=== PATIENT | female | born 2005 | race Caucasian/White ===

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

== ENCOUNTER 2023-11-09 08:00 | Outpatient (CLI) | payer OTHER ==
[2023-11-09 12:10] LABS: BASOPHILS # (AUTO) 0.1 10^3/uL (0.0-0.1); BASOPHILS % (AUTO) 0.9 %; EOSINOPHILS # (AUTO) 0.1 10^3/uL (0.0-0.7); EOSINOPHILS % (AUTO) 0.7 %; HCT - HEMATOCRIT 44.3 % (37.0-47.0); HGB - HEMOGLOBIN 14.4 g/dL (12.0-16.0); LYMPHOCYTES # (AUTO) 1.7 10^3/uL (1.5-3.5); LYMPHOCYTES % (AUTO) 24.3 %; MEAN CORPUSCULAR HEMOGLOBIN 29.4 pg (27.0-31.0); MEAN CORPUSCULAR HGB CONC 32.5 g/dL (32.0-36.0); MEAN CORPUSCULAR VOLUME 90.4 fL (81.0-99.0); MEAN PLATELET VOLUME 9.3 fL (7.9-10.8); MONOCYTES # (AUTO) 0.5 10^3/uL (0.0-1.0); MONOCYTES % (AUTO) 7.3 %; NEUTROPHILS # (AUTO) 4.7 10^3/uL (1.5-6.6); NEUTROPHILS % (AUTO) 66.5 %; PLT - PLATELET COUNT 373 10^3/uL (130-450); RED CELL DISTRIBUTION WIDTH 12.2 % (12.0-15.0)
[2023-11-09 12:46] LABS: CREATININE 0.8 mg/dL (0.6-1.3); POTASSIUM 3.6 mmol/L (3.5-4.5)
[2023-11-09 12:59] LABS: THYROID STIMULATING HORMONE 1.7 uIU/mL (0.34-5.60)
== END 2023-11-09 08:15 | disposition home or self-care (01) ==
LOC: LAB.N 08:00
PROVIDERS: ATTEND Physician Assistant Medical
DX: R55 Syncope and collapse (principal)
CPT/HCPCS: 36415; 80048; 84443; 85025

== ENCOUNTER 2023-11-10 09:52 | Emergency (ER) | payer OTHER ==
[2023-11-10 10:11] VITALS: O2SAT 100
[2023-11-10] MEDS ORDERED: iohexoL-300 100 ML VIAL ONE (10:39)
[2023-11-10] MEDS: SODIUM CHLORIDE 0.9% 1,000 ML IV STA (10:48)
--- NOTE | 2023-11-10 10:55 | ED Physician Documentation ---
History of Present Illness - Stated complaint Stated Complaint: D/N/V - Chief complaint Chief Complaint: Abd Pain - History obtained from History obtained from: Patient - Additonal information Additional information: The patient comes to the emergency department with chief complaint of of episodes of lightheadedness and nausea for the last month. She states it happens on and off and is usually at a frequency of 2-3 times a week. The patient states it is very random. The first time it happened, she was just sitting on the couch with her fianc when she suddenly began to feel a simultaneous lightheaded and spinning sensation. The patient states that she ended up being helped to the bathroom by her fianc and vomiting in the toilet. She states that she has had a few episodes of syncope since with similar symptoms preceding. The patient denies any chest pain, shortness of breath, or palpitations associated with this. She has never been prone to fainting previously and denies any cardiac rhythm issues. She has not been noticing any black or bloody stools. No extra heavy periods. She is on control. The patient denies any edema in her lower extremities. No calf pain. No history of DVT/PE. The patient was seen yesterday in the walk-in clinic and was worked up with laboratory studies which were unremarkable, including metabolic panel, CBC, and test. The patient had another episode this morning and states [place]. PD PAST MEDICAL HISTORY - Past Medical History Past Medical History: No - Past Surgical History Past Surgical History: No - Present Medications Home Medications: Ambulatory Orders Medication Instructions Recorded Confirmed Meclizine HCl [Motion Sickness] 50 mg PO Q6H PRN #20 tab 11/10/23 Non Formulary 1 each PO QD 11/10/23 11/10/23 Ondansetron Odt [Zofran] 4 mg TL Q6H PRN #14 tablet 11/10/23 - Allergies Allergies/Adverse Reactions: Allergies Allergy/AdvReac Type Severity Reaction Status Date / Time No Known Drug Allergies Allergy Verified 11/10/23 10:02 - Social History Does the pt smoke?: No Smoking Status: Never smoker Does the pt drink ETOH?: No Does the pt have substance abuse?: No PD ED PE NORMAL - Vitals Vital signs reviewed: Yes - General General: Alert and oriented X 3, No acute distress, Well developed/nourished - HEENT HEENT: Atraumatic, EOMI, Moist mucous membranes - Neck Neck: Supple, no meningeal sign - Cardiac Cardiac: RRR, No murmur - Respiratory Respiratory: No respiratory distress, Clear bilaterally - Abdomen Abdomen: Soft, Non tender, Non distended - Derm Derm: Normal color, Warm and dry, No rash - Extremities Extremities: No deformity, No edema, No calf tenderness / cord - Neuro Neuro: Other (Alert, grossly intact.) - Psych Psych: Normal mood, Normal affect Results - Vitals Vitals: Oxygen O2 Source Room air - EKG (time done) 1041 EKG releavant findings:: EKG personally interpreted by author of this note. Relevant findings are: Rate: Rate (enter#) (66) Rhythm: NSR [place]: Normal Intervals: Normal GA QRS: Normal Ischemia: Normal ST segments Compare to prior EKG: Old EKG unavailable Computer interpretation: Agree with computer - Rads (name of study) CT angiogram chest Relevant Findings:: Final report received, See rad report (Negative) PD Medical Decision Making - ED course Complexity details: reviewed old records, reviewed results, re-evaluated patient, considered differential, d/w patient ED course: The patient had had extensive evaluation already and this was unremarkable. I did obtain an EKG in the emergency department and this overall looked good. I then sent the patient for CTA chest to evaluate for possible clot and this was also negative. I felt the patient was stable for discharge home. Her vital signs were normal here and I could not explain the symptoms she had been having. I have advised her that an event monitor is the next best step in evaluation and that she should talk to her primary about this when she is seen. I have also encouraged her to call the primary care office and request an earlier appointment in light of what is going on. We have discussed the usual indications for return. Departure - Departure Disposition: 01 Home, Self Care Clinical Impression: Lightheadedness Syncope Qualifiers: Syncope type: unspecified Qualified Code(s): R55 - Syncope and collapse Condition: Stable Instructions: ED Dizziness UKO, ED Fainting Unkn Cause Prescriptions: Meclizine HCl [Motion Sickness] 50 mg PO Q6H PRN #20 tab PRN Reason: Vertigo Ondansetron Odt [Zofran] 4 mg TL Q6H PRN #14 tablet PRN Reason: Nausea / Vomiting Comments: I have reviewed your labs from yesterday, which overall look good. In fact, there were no abnormalities whatsoever. As we discussed, the things that we think about in young, otherwise healthy patients who faint would be electrolyte abnormalities, low red blood cells (anemia), and related issues. You are not and so the latter does not apply, and the remainder of the issues were ruled out by your normal labs. Sometimes infection can do this as well, but there is no evidence of infection either. You were kept on the cardiac rehab nurse here in the emergency department and found to be in a normal rhythm. Your EKG looks good. You were sent for CT scan of the chest to look for any possibility of a blood clot in your lungs which can also sometimes cause feeling of dizziness and fainting; however, this was normal. As far as bumping your head the other day, by now it would be very obvious if you had any significant head trauma and there is no evidence of this at this time. Is very important that you follow-up with your primary doctor to discuss wearing an event monitor, which is a portable monitor for your heart that you can wear for varying lengths of time. It records your heart rate and rhythm 24/ while you are wearing it and helps give an idea of what may be going on with your heart when you have these episodes, should you have an episode during the time you wear the monitor. This is the next best step in trying to determine what is causing dizziness and fainting when it happens. Once this is done, I can help to rule in or rule out certain potential diagnoses. You will most likely ultimately need to see a general administrator if the symptoms continue. For now, you should continue to drink plenty of fluids and eat a good healthy diet. You may take the nausea medicine prescribed as needed for nausea. We will also give you medication for dizziness. Your prescriptions have been electronically transmitted to the [facility] pharmacy in [place]. Forms: PCP List Discharge Date/Time: 11/10/23 12:50
[2023-11-10] MEDS: iohexoL-300 100 ML VIAL IVP ONE (11:41)
--- NOTE | 2023-11-10 11:48 | CT Report ---
PROCEDURE: Angio Chest INDICATIONS: repeat sob/syncope. Labs/HCG normal yesterday CONTRAST: IV 100 mL Omnipaque 300 TECHNIQUE: After the administration of intravenous contrast, 2 mm axial images were acquired from the pulmonary apices to the posterior costophrenic angles during the arterial phase. In addition, 1 mm lung kernel and 5 mm soft tissue kernel reconstructions were performed. 3-dimensional coronal oblique maximum int ensity projection (MIP) reformats, 8 mm axial MIP, and 5 mm coronal and sagittal MPR reformats were t hen performed through the thorax. For radiation dose reduction, the following was used: automated exp osure control, adjustment of mA and/or kV according to patient size. COMPARISON: None. FINDINGS: Image quality: Excellent. Large vessels: No filling defects within the opacified pulmonary arteries, accounting for motion and contrast timing. No evidence of acute aortic syndrome or aortic aneurysm. Lungs and pleura: No consolidation. No pleural effusions. No pneumothorax. No suspicious pulmonary n odules which require follow up. Mediastinum: Heart size is normal. No pericardial effusion. No large vessel abnormality. No mediastin al adenopathy by size criteria. Chest wall and lower neck: Thyroid is unremarkable. No axillary or supraclavicular adenopathy by size . Bones: No aggressive osseous abnormality. Upper Abdomen: Unremarkable. IMPRESSION: No pulmonary embolus or aortic dissection. No lung consolidation or pleural effusions. Reviewed by: Serena Duggan MD, PhD on 11/10/2023 11:46 AM PDT Approved by: Serena Duggan MD, PhD on 11/10/2023 11:46 AM PDT Station ID: [id number]
[2023-11-10 12:56] VITALS: BP 105/70
== END 2023-11-10 12:50 | disposition home or self-care (01) ==
LOC: ED 09:52
DX: R55 Syncope and collapse (principal); R42 Dizziness and giddiness; R11.0 Nausea
CPT/HCPCS: 36415; 71275; 93005; 96360; 99284; Q9967

== ENCOUNTER 2024-02-02 15:19 | Outpatient (CLI) | payer OTHER | END 2024-02-02 15:20 | disposition home or self-care (01) | LOC: DI 15:19 | PROVIDERS: ATTEND Nurse Practitioner Family | DX: R00.2 Palpitations (principal) | CPT/HCPCS: 93307 ==